=== PATIENT | female | born 1985 | race Two or more races ===

== ENCOUNTER 2017-11-10 13:27 | Emergency (ER) | payer OTHER ==
[~2017-11-10] VITALS: Ht 160 cm; Wt 131.5 kg
== END 2017-11-10 15:50 | disposition home or self-care (01) ==
LOC: ER 13:27
DX: J03.90 Acute tonsillitis, unspecified (principal)

== ENCOUNTER → 2019-03-30 | Emergency (ER) | payer OTHER ==
[~2019-03-30] VITALS: Ht 157.5 cm; Wt 124.7 kg
== END | disposition home or self-care (01) ==
LOC: ER 20:32
DX: M54.5 Low back pain (principal)

== ENCOUNTER 2020-11-13 20:20 | Emergency (ER) | payer OTHER ==
[~2020-11-13] VITALS: Ht 157.5 cm; Wt 154.2 kg
== END 2020-11-13 23:09 | disposition home or self-care (01) ==
LOC: ER 20:20
DX: R07.89 Other chest pain (principal)

== ENCOUNTER 2021-03-17 21:26 | Emergency (ER) | payer OTHER ==
[~2021-03-17] VITALS: Ht 160 cm; Wt 158.8 kg
[2021-03-18] MEDS ORDERED: CEPHALEXIN500 MG PO (02:47)
[2021-03-18] MEDS ORDERED: KETO10TA2 PO (02:47)
== END 2021-03-18 02:55 ==
LOC: ER 21:26
DX: N39.0 Urinary tract infection, site not specified (principal)

== ENCOUNTER 2021-04-28 17:50 | Emergency (ER) | payer OTHER ==
[~2021-04-28] VITALS: Ht 160 cm; Wt 158.8 kg
[~2021-04-28 17:50] MED LIST: CEPHALEXIN500 MG PO; KETO10TA2 PO
== END 2021-04-28 21:15 | disposition home or self-care (01) ==
LOC: ER 17:50 → EDBD 17:57 → ER 17:57
DX: B34.9 Viral infection, unspecified (principal); Z20.822 Contact with and (suspected) exposure to COVID-19

== ENCOUNTER 2022-02-20 19:18 | Emergency (ER) | payer OTHER ==
[~2022-02-20] VITALS: Ht 160 cm; Wt 167.8 kg
[2022-02-20] MEDS ORDERED: KETO10TA2 PO (22:18)
[2022-02-20] MEDS ORDERED: MEDROLPACK PO (22:18)
== END 2022-02-20 22:24 | disposition home or self-care (01) ==
LOC: ER 19:18
DX: S89.92XA Unspecified injury of left lower leg, initial encounter (principal); W19.XXXA Unspecified fall, initial encounter; Y93.9 Activity, unspecified; Y92.9 Unspecified place or not applicable; Y99.9 Unspecified external cause status; S89.91XA Unspecified injury of right lower leg, initial encounter; M25.562 Pain in left knee; M25.561 Pain in right knee

== ENCOUNTER 2022-11-28 23:27 | Emergency (ER) | payer OTHER ==
[~2022-11-28] VITALS: Ht 160 cm; Wt 132.9 kg
[~2022-11-28 23:27] MED LIST changes: +MEDROLPACK PO
[2022-11-29] MEDS ORDERED: PEPCID40 MG PO (07:17)
[2022-11-29] MEDS ORDERED: ONDANSETRON ODT4 MG PO (07:17)
== END 2022-11-29 07:28 ==
LOC: ER 23:27
DX: R10.13 Epigastric pain (principal); R10.9 Unspecified abdominal pain
CPT/HCPCS: 36415; 74177; Q9965

== ENCOUNTER 2024-02-26 14:18 | Emergency (ER) | payer OTHER ==
[~2024-02-26] VITALS: Ht 160 cm; Wt 103.4 kg
[~2024-02-26 14:18] MED LIST changes: +ONDANSETRON ODT4 MG PO; +PEPCID40 MG PO
[2024-02-26] MEDS ORDERED: MAG HYDROX/ALUMINUM HYD/SIMETH 30 ML BLIST.PACK PO ONE (15:45)
[2024-02-26] MEDS ORDERED: LACTOBACILLUS ACIDOPHILUS 1 CAP CAP PO ONE (15:45)
[2024-02-26] MEDS ORDERED: PANTOPRAZOLE SODIUM 40 MG/VIAL VIAL IV ONE (15:45)
[2024-02-26] MEDS ORDERED: INTESTINEX680 M1 PO (15:51)
[2024-02-26] MEDS ORDERED: PEPCID AC20 MG PO (15:51)
[2024-02-26] MEDS ORDERED: ZEGERID 20 MG1 EAC1 PO (15:51)
[2024-02-26] MEDS ORDERED: FAMOTIDINE/PF 20 MG/2 ML VIAL IV PUSH ONE (16:00)
[2024-02-26 16:08] VITALS: BP 110/60; O2SAT 97
== END 2024-02-26 16:09 | disposition home or self-care (01) ==
LOC: ER 14:19
DX: K21.9 Gastro-esophageal reflux disease without esophagitis (principal); K29.70 Gastritis, unspecified, without bleeding; J45.909 Unspecified asthma, uncomplicated